=== PATIENT | female | born 1980 | race Caucasian/White ===

== ENCOUNTER 2022-03-28 09:53 | Emergency (ER) | payer SELFPAY ==
[~2022-03-28] VITALS: Ht 170.1 cm; Wt 104.3 kg
[2022-03-28] MEDS ORDERED: CLINDAMYCIN HC300 MG PO (10:39)
== END 2022-03-28 11:08 | disposition home or self-care (01) ==
LOC: ED 09:53
DX: S61.211A Laceration without foreign body of left index finger without damage to nail, initial encounter (principal); Z88.8 Allergy status to other drugs, medicaments and biological substances; W23.0XXA Caught, crushed, jammed, or pinched between moving objects, initial encounter; Y93.89 Activity, other specified; Y92.89 Other specified places as the place of occurrence of the external cause; Y99.8 Other external cause status

== ENCOUNTER 2023-04-13 13:34 | Emergency (ER) | payer OTHER ==
[~2023-04-13] VITALS: Ht 170.1 cm; Wt 98.9 kg
[~2023-04-13 13:34] MED LIST: CLINDAMYCIN HC300 MG PO; CYCLOBENZAPRINE10 MG PO
== END 2023-04-13 15:32 | disposition home or self-care (01) ==
LOC: ED 13:34
DX: S82.891A Other fracture of right lower leg, initial encounter for closed fracture (principal); Z88.5 Allergy status to narcotic agent; Z88.8 Allergy status to other drugs, medicaments and biological substances; X50.1XXA Overexertion from prolonged static or awkward postures, initial encounter; Y93.89 Activity, other specified; Y92.89 Other specified places as the place of occurrence of the external cause; Y99.8 Other external cause status

== ENCOUNTER 2023-05-26 11:27 | Emergency (ER) | payer OTHER ==
[~2023-05-26] VITALS: Ht 170.1 cm; Wt 98.0 kg
[2023-05-26] MEDS ORDERED: GABAPENTIN600 MG PO (11:37)
[2023-05-26] MEDS ORDERED: MONTELUKAST SOD10 MG PO (11:38)
[2023-05-26] MEDS ORDERED: PROPRANOLOL HCL60 M1 PO (11:38)
[2023-05-26] MEDS ORDERED: AMLODIPINE BESY10 MG PO (11:38)
[2023-05-26] MEDS ORDERED: CETIRIZINE HYDR10 MG PO (11:38)
[2023-05-26] MEDS ORDERED: OMEPRAZOLE MAGN20 MG PO (11:38)
[2023-05-26] MEDS ORDERED: PROVENTIL HFA6.7 GM INH (14:03)
== END 2023-05-26 14:17 | disposition home or self-care (01) ==
LOC: ED 11:27
DX: J06.9 Acute upper respiratory infection, unspecified (principal); Z88.5 Allergy status to narcotic agent; Z88.8 Allergy status to other drugs, medicaments and biological substances; Z90.49 Acquired absence of other specified parts of digestive tract; Z90.89 Acquired absence of other organs; Z98.890 Other specified postprocedural states; F17.290 Nicotine dependence, other tobacco product, uncomplicated; Z20.822 Contact with and (suspected) exposure to COVID-19

== ENCOUNTER → 2023-06-18 | Outpatient (CLI) | payer OTHER ==
[~2023-06-18] MED LIST changes: +AMLODIPINE BESY10 MG PO; +CETIRIZINE HYDR10 MG PO; +GABAPENTIN600 MG PO; +MONTELUKAST SOD10 MG PO; +OMEPRAZOLE MAGN20 MG PO; +PROPRANOLOL HCL60 M1 PO; +PROVENTIL HFA6.7 GM INH
== END | disposition home or self-care (01) ==
LOC: CP 13:30
PROVIDERS: ATTEND Student in an Organized Health Care Education/Training Program
DX: R06.02 Shortness of breath (principal); R05.8 Other specified cough; Z72.0 Tobacco use

== ENCOUNTER 2024-01-20 12:33 | Emergency (ER) | payer OTHER ==
[~2024-01-20] VITALS: Ht 170.1 cm; Wt 104.3 kg
[2024-01-20] MEDS ORDERED: PREDNISONE50 MG PO (16:15)
== END 2024-01-20 16:36 | disposition home or self-care (01) ==
LOC: ED 12:33
DX: R51.9 Headache, unspecified (principal); M54.9 Dorsalgia, unspecified; M25.561 Pain in right knee; M25.562 Pain in left knee; M25.512 Pain in left shoulder; M25.551 Pain in right hip; M25.552 Pain in left hip; M54.2 Cervicalgia; Z88.1 Allergy status to other antibiotic agents; Z88.5 Allergy status to narcotic agent; Z79.899 Other long term (current) drug therapy; V89.2XXA Person injured in unspecified motor-vehicle accident, traffic, initial encounter; Y93.I9 Activity, other involving external motion; Y92.488 Other paved roadways as the place of occurrence of the external cause; Y99.8 Other external cause status

== ENCOUNTER → 2024-04-18 | Day surgery (SDC) | payer OTHER ==
[~2024-04-18] VITALS: Ht 170.1 cm; Wt 102.1 kg
[~2024-04-18] MED LIST changes: +CYMBALTA60 MG PO; +IBUPROFEN600 MG PO; +Lactated Ringer's Solution 1,000 ML IV ONE; +Lidocaine Hydrochloride 5 ML VIAL IV ONE; +PREDNISONE50 MG PO; +PROPOFOL 200 MG/20 ML VIAL IV ONE; +fentaNYL CITRATE 100 MCG/2 ML VIAL IV ONE
[2024-04-18 10:10] VITALS: BP 124/73
[2024-04-18 12:40] VITALS: BP 108/62
[2024-04-18 12:55] VITALS: BP 104/67
[2024-04-18 13:08] VITALS: BP 121/83
== END | disposition home or self-care (01) ==
LOC: SDC 04-14 10:15
PROVIDERS: ATTEND Surgery
DX: K21.9 Gastro-esophageal reflux disease without esophagitis (principal); K44.9 Diaphragmatic hernia without obstruction or gangrene; G43.909 Migraine, unspecified, not intractable, without status migrainosus; F41.9 Anxiety disorder, unspecified; J45.909 Unspecified asthma, uncomplicated; F32.A Depression, unspecified; Z90.89 Acquired absence of other organs; Z98.890 Other specified postprocedural states; Z88.5 Allergy status to narcotic agent; Z88.8 Allergy status to other drugs, medicaments and biological substances; Z79.899 Other long term (current) drug therapy

== ENCOUNTER 2024-09-05 15:34 | Emergency (ER) | payer OTHER ==
[~2024-09-05] VITALS: Ht 170.1 cm; Wt 102.1 kg
[~2024-09-05 15:34] MED LIST changes: +AZITHROMYCIN500 M2 PO; +CETIRIZINE10 MG PO; +IBU600 M1 PO; +LEVOFLOXACIN750 M2 PO; -Lactated Ringer's Solution 1,000 ML IV ONE; -Lidocaine Hydrochloride 5 ML VIAL IV ONE; +MUCUS RELIEF E600 MG PO; +NORVASC10 MG PO; +OMNICEF300 MG PO; +PREDNISONE10 MG PO; -PROPOFOL 200 MG/20 ML VIAL IV ONE; +SINGULAIR10 M1 PO; +VENTOLIN 02.5 MG/3 M INH; -fentaNYL CITRATE 100 MCG/2 ML VIAL IV ONE
[2024-09-05] MEDS ORDERED: Ketorolac Tromethamine 30 MG/ML VIAL IV ONE (16:00)
[2024-09-05] MEDS ORDERED: SODIUM CHLORIDE 0.9% 500 ML IV ONE (16:00)
[2024-09-05 16:13] LABS: BASO # 0.1 10*3/uL (0.0-0.1); BASO % 0.6 % (0.0-1.0); EOS # 0.1 10*3/uL (0.0-0.4); EOS % 1.2 % (1.0-4.0); MEAN CELL VOLUME 90.7 fl (81.0-99.0); MEAN CORPUSCULAR HGB 29.3 pg (27.0-31.0); MEAN CORPUSCULAR HGB CONC 32.3 g/dl (33.0-37.0); MEAN PLATELET VOLUME 9.9 fl (9.6-12.3); MONO # 0.6 10*3/uL (0.1-1.0); NEUT % 50.8 % (47.0-73.0); PLATELET COUNT AUTOMATED 230 10*3/uL (130-400); RED BLOOD COUNT 5.18 10*6/uL (4.10-5.10); RED CELL DISTRI WIDTH 13.6 % (0-14.5); WHITE BLOOD COUNT 9.8 10*3/uL (4.8-10.8)
[2024-09-05 16:33] LABS: BUN 10 mg/dl (9-23); CHLORIDE 102 mmol/L (98-107); POTASSIUM 3.3 mmol/L (3.4-5.1)
[2024-09-05 17:19] LABS: BILIRUBIN Negative (Negative); BLOOD Negative (Negative); CLARITY Clear (Clear); COLOR Yellow (Yellow); GLUCOSE Negative (Negative); KETONE Negative (Negative); LEUKO ESTERASE Negative (Negative); NITRITE Negative (Negative); SPECIFIC GRAVITY <= 1.005 (1.001-1.030); UROBILINOGEN 0.2 E.U./dl (0.0-1.0)
[2024-09-05 17:35] LABS: BACTERIA 1+
[2024-09-05] MEDS ORDERED: MAGNESIUM CITRATE 296 ML BOT PO ONE (18:00)
[2024-09-05] MEDS ORDERED: POTASSIUM CHLORIDE 20 MEQ TAB PO ONE (18:00)
== END 2024-09-05 18:08 | disposition home or self-care (01) ==
LOC: ED 15:34
PROVIDERS: Internal Medicine
DX: K59.00 Constipation, unspecified (principal); E87.6 Hypokalemia; R11.2 Nausea with vomiting, unspecified; J45.909 Unspecified asthma, uncomplicated; F17.200 Nicotine dependence, unspecified, uncomplicated; Z88.5 Allergy status to narcotic agent; Z88.8 Allergy status to other drugs, medicaments and biological substances; Z90.49 Acquired absence of other specified parts of digestive tract; Z90.89 Acquired absence of other organs; Z90.710 Acquired absence of both cervix and uterus; Z98.890 Other specified postprocedural states; Z98.51 Tubal ligation status

== ENCOUNTER 2025-04-22 22:11 | Emergency (ER) | payer OTHER ==
[~2025-04-22] VITALS: Ht 165.1 cm; Wt 90.7 kg
[2025-04-22] MEDS ORDERED: Ondansetron Hydrochloride 4 MG/2 ML VIAL IV ONE (22:25)
[2025-04-22] MEDS ORDERED: SODIUM CHLORIDE 0.9% 1,000 ML IV ONE (22:25)
[2025-04-23] MEDS ORDERED: Ondansetron Hydrochloride 4 MG TAB SL ONE (00:15)
== END 2025-04-23 00:22 | disposition home or self-care (01) ==
LOC: ED 22:11
DX: B34.9 Viral infection, unspecified (principal); F17.200 Nicotine dependence, unspecified, uncomplicated; Z98.890 Other specified postprocedural states; Z98.51 Tubal ligation status; Z90.49 Acquired absence of other specified parts of digestive tract; Z90.710 Acquired absence of both cervix and uterus; Z90.89 Acquired absence of other organs; Z88.5 Allergy status to narcotic agent; Z88.8 Allergy status to other drugs, medicaments and biological substances

== ENCOUNTER → 2025-06-05 | Outpatient (CLI) | payer OTHER ==
[~2025-06-05] MED LIST changes: +POTASSIUM CHLO20 ME3 PO
[2025-06-05 13:29] LABS: BASO # 0.0 10*3/uL (0.0-0.1); BASO % 0.4 % (0.0-1.0); EOS # 0.2 10*3/uL (0.0-0.4); EOS % 1.4 % (1.0-4.0); MEAN CELL VOLUME 90.9 fl (81.0-99.0); MEAN CORPUSCULAR HGB 29.2 pg (27.0-31.0); MEAN PLATELET VOLUME 9.4 fl (9.6-12.3); MONO # 0.6 10*3/uL (0.1-1.0); MONO % 5.4 % (3.0-9.0); NEUT # 6.0 10*3/uL (2.3-7.9); NEUT % 54.0 % (47.0-73.0); NUCLEATED RED BLOOD CELL 0.0 % (0.0-0.0); NUCLEATED RED BLOOD CELL 0.0 10*3/uL (0.0-0.0); PLATELET COUNT AUTOMATED 259 10*3/uL (130-400); RED CELL DISTRI WIDTH 14.6 % (0-14.5)
[2025-06-05 14:02] LABS: BUN 7 mg/dl (9-23)
== END | disposition home or self-care (01) ==
LOC: LAB 12:36
PROVIDERS: ATTEND Family Medicine
DX: J44.1 Chronic obstructive pulmonary disease with (acute) exacerbation (principal); M41.84 Other forms of scoliosis, thoracic region

== ENCOUNTER 2025-07-22 10:02 | Emergency (ER) | payer OTHER ==
[~2025-07-22] VITALS: Ht 170.1 cm; Wt 104.8 kg
[2025-07-22] MEDS ORDERED: SODIUM CHLORIDE 0.9% 1,000 ML IV ONE (10:35)
[2025-07-22 10:46] LABS: BASO # 0.0 10*3/uL (0.0-0.1); BASO % 0.4 % (0.0-1.0); EOS # 0.0 10*3/uL (0.0-0.4); EOS % 0.3 % (1.0-4.0); MEAN CELL VOLUME 88.2 fl (81.0-99.0); MEAN CORPUSCULAR HGB 28.4 pg (27.0-31.0); MEAN PLATELET VOLUME 9.6 fl (9.6-12.3); MONO # 0.4 10*3/uL (0.1-1.0); MONO % 5.3 % (3.0-9.0); NEUT # 5.1 10*3/uL (2.3-7.9); NEUT % 73.1 % (47.0-73.0); NUCLEATED RED BLOOD CELL 0.0 % (0.0-0.0); NUCLEATED RED BLOOD CELL 0.0 10*3/uL (0.0-0.0); PLATELET COUNT AUTOMATED 250 10*3/uL (130-400); RED CELL DISTRI WIDTH 13.8 % (0-14.5)
[2025-07-22 10:48] LABS: BILIRUBIN Negative (Negative); BLOOD Negative (Negative); CLARITY Clear (Clear); COLOR Yellow (Yellow); KETONE Negative (Negative); LEUKO ESTERASE Negative (Negative); NITRITE Negative (Negative); PH 6.5 (4.5-8.0); SPECIFIC GRAVITY 1.010 (1.001-1.030); UROBILINOGEN 0.2 E.U./dl (0.0-1.0)
[2025-07-22 11:01] LABS: WBC 0-2 wbc/hpf (0-5)
[2025-07-22 11:02] LABS: BACTERIA 2+; RBC 0-2 rbc/hpf (0-2)
[2025-07-22 11:12] LABS: BUN 7 mg/dl (9-23)
[2025-07-22 11:18] LABS: SGPT/ALT < 7 U/L (5-49)
== END 2025-07-22 11:47 | disposition home or self-care (01) ==
LOC: ED 10:02
PROVIDERS: Emergency Medicine
DX: R19.7 Diarrhea, unspecified (principal); E87.6 Hypokalemia; J45.909 Unspecified asthma, uncomplicated; F17.210 Nicotine dependence, cigarettes, uncomplicated; Z90.710 Acquired absence of both cervix and uterus; Z98.890 Other specified postprocedural states; Z90.89 Acquired absence of other organs; Z90.49 Acquired absence of other specified parts of digestive tract; Z98.51 Tubal ligation status; Z88.5 Allergy status to narcotic agent; Z88.8 Allergy status to other drugs, medicaments and biological substances

== ENCOUNTER 2025-07-23 18:09 | Emergency (ER) | payer OTHER ==
[~2025-07-23] VITALS: Ht 162.5 cm; Wt 68.0 kg
[2025-07-23] MEDS ORDERED: Ondansetron Hydrochloride 4 MG/2 ML VIAL IV ONE (18:30)
[2025-07-23] MEDS ORDERED: SODIUM CHLORIDE 0.9% 1,000 ML IV ONE (18:30)
[2025-07-23 18:41] LABS: BASO # 0.1 10*3/uL (0.0-0.1); BASO % 0.5 % (0.0-1.0); EOS # 0.0 10*3/uL (0.0-0.4); EOS % 0.3 % (1.0-4.0); MEAN CELL VOLUME 88.2 fl (81.0-99.0); MEAN CORPUSCULAR HGB 28.1 pg (27.0-31.0); MEAN PLATELET VOLUME 9.6 fl (9.6-12.3); MONO # 0.7 10*3/uL (0.1-1.0); MONO % 7.2 % (3.0-9.0); NEUT # 6.5 10*3/uL (2.3-7.9); NEUT % 64.7 % (47.0-73.0); NUCLEATED RED BLOOD CELL 0.0 % (0.0-0.0); NUCLEATED RED BLOOD CELL 0.0 10*3/uL (0.0-0.0); PLATELET COUNT AUTOMATED 240 10*3/uL (130-400); RED CELL DISTRI WIDTH 13.9 % (0-14.5)
[2025-07-23 18:56] LABS: BILIRUBIN Negative (Negative); BLOOD Negative (Negative); CLARITY Clear (Clear); COLOR Yellow (Yellow); KETONE Negative (Negative); LEUKO ESTERASE Negative (Negative); NITRITE Negative (Negative); PH 7.0 (4.5-8.0); SPECIFIC GRAVITY 1.010 (1.001-1.030); UROBILINOGEN 0.2 E.U./dl (0.0-1.0)
[2025-07-23 19:05] LABS: BUN 5 mg/dl (9-23)
[2025-07-23 19:07] LABS: SGPT/ALT < 7 U/L (5-49)
[2025-07-23 19:10] LABS: BACTERIA TRACE
[2025-07-23] MEDS ORDERED: POTASSIUM CHLORIDE 20 MEQ TAB PO ONE (20:45)
== END 2025-07-23 21:06 | disposition home or self-care (01) ==
LOC: ED 18:09
PROVIDERS: Emergency Medicine
DX: B34.9 Viral infection, unspecified (principal); E87.6 Hypokalemia; J45.909 Unspecified asthma, uncomplicated; Z79.899 Other long term (current) drug therapy; Z20.822 Contact with and (suspected) exposure to COVID-19; Z88.5 Allergy status to narcotic agent; Z88.8 Allergy status to other drugs, medicaments and biological substances; Z90.49 Acquired absence of other specified parts of digestive tract; Z90.710 Acquired absence of both cervix and uterus; Z90.89 Acquired absence of other organs; Z98.51 Tubal ligation status; Z98.890 Other specified postprocedural states

== ENCOUNTER 2025-08-06 00:39 | Emergency (ER) | payer OTHER ==
[~2025-08-06] VITALS: Ht 170.1 cm; Wt 106.1 kg
[2025-08-06 01:30] LABS: BASO # 0.0 10*3/uL (0.0-0.1); BASO % 0.4 % (0.0-1.0); EOS # 0.2 10*3/uL (0.0-0.4); EOS % 1.7 % (1.0-4.0); MEAN CELL VOLUME 90.6 fl (81.0-99.0); MEAN CORPUSCULAR HGB 28.3 pg (27.0-31.0); MEAN PLATELET VOLUME 9.5 fl (9.6-12.3); MONO # 0.4 10*3/uL (0.1-1.0); MONO % 4.6 % (3.0-9.0); NEUT # 5.3 10*3/uL (2.3-7.9); NEUT % 56.6 % (47.0-73.0); NUCLEATED RED BLOOD CELL 0.0 % (0.0-0.0); NUCLEATED RED BLOOD CELL 0.0 10*3/uL (0.0-0.0); PLATELET COUNT AUTOMATED 227 10*3/uL (130-400); RED CELL DISTRI WIDTH 13.8 % (0-14.5)
[2025-08-06 02:16] LABS: BUN 6 mg/dl (9-23); ETHYL ALCOHOL 4.8 mg/dl (<3)
[2025-08-06] MEDS ORDERED: POTASSIUM CHLORIDE 20 MEQ TAB PO ONE (03:35)
[2025-08-06] MEDS ORDERED: Acetaminophen/Hydrocodone 5 MG/325 MG TABLET PO ONE (03:45)
[2025-08-06] MEDS ORDERED: POTASSIUM CHLO10 ME5 PO (03:45)
== END 2025-08-06 03:57 | disposition home or self-care (01) ==
LOC: ED 00:39
PROVIDERS: Emergency Medicine
DX: E87.6 Hypokalemia (principal); R55 Syncope and collapse; J45.909 Unspecified asthma, uncomplicated; F12.90 Cannabis use, unspecified, uncomplicated; F17.210 Nicotine dependence, cigarettes, uncomplicated; Z90.710 Acquired absence of both cervix and uterus; Z90.49 Acquired absence of other specified parts of digestive tract; Z98.890 Other specified postprocedural states; Z98.51 Tubal ligation status; Z88.5 Allergy status to narcotic agent; Z88.8 Allergy status to other drugs, medicaments and biological substances; Z90.89 Acquired absence of other organs

== ENCOUNTER 2025-08-12 07:54 | Emergency (ER) | payer OTHER ==
[~2025-08-12] VITALS: Ht 170.1 cm; Wt 106.1 kg
[~2025-08-12 07:54] MED LIST changes: +POTASSIUM CHLO10 ME5 PO
[2025-08-12 08:20] LABS: BASO # 0.0 10*3/uL (0.0-0.1); BASO % 0.3 % (0.0-1.0); EOS # 0.1 10*3/uL (0.0-0.4); EOS % 1.0 % (1.0-4.0); MEAN CELL VOLUME 88.4 fl (81.0-99.0); MEAN CORPUSCULAR HGB 28.0 pg (27.0-31.0); MEAN PLATELET VOLUME 9.7 fl (9.6-12.3); MONO # 0.5 10*3/uL (0.1-1.0); MONO % 4.8 % (3.0-9.0); NEUT # 7.1 10*3/uL (2.3-7.9); NEUT % 73.5 % (47.0-73.0); NUCLEATED RED BLOOD CELL 0.0 % (0.0-0.0); NUCLEATED RED BLOOD CELL 0.0 10*3/uL (0.0-0.0); PLATELET COUNT AUTOMATED 251 10*3/uL (130-400); RED CELL DISTRI WIDTH 13.6 % (0-14.5)
[2025-08-12 08:39] LABS: BUN 9 mg/dl (9-23)
[2025-08-12] MEDS ORDERED: SODIUM CHLORIDE 0.9% 100 ML BAG IV ONE (09:35)
[2025-08-12] MEDS ORDERED: IOHEXOL 350 MG/ML 100 ML VIAL IV ONE (09:35)
== END 2025-08-12 11:32 | disposition home or self-care (01) ==
LOC: ED 07:54
PROVIDERS: Student in an Organized Health Care Education/Training Program
DX: R07.89 Other chest pain (principal); J45.909 Unspecified asthma, uncomplicated; Z90.710 Acquired absence of both cervix and uterus; Z90.49 Acquired absence of other specified parts of digestive tract; Z90.89 Acquired absence of other organs; Z98.890 Other specified postprocedural states; Z88.5 Allergy status to narcotic agent; Z88.8 Allergy status to other drugs, medicaments and biological substances

== ENCOUNTER → 2025-08-22 | Outpatient (CLI) | payer OTHER | END | disposition home or self-care (01) | LOC: LAB 03:00 | PROVIDERS: ATTEND Internal Medicine Critical Care Medicine | DX: J45.40 Moderate persistent asthma, uncomplicated (principal); R59.0 Localized enlarged lymph nodes; R91.8 Other nonspecific abnormal finding of lung field; Z80.1 Family history of malignant neoplasm of trachea, bronchus and lung; Z68.35 Body mass index [BMI] 35.0-35.9, adult; Z87.891 Personal history of nicotine dependence ==